=== PATIENT | female | born 1995 | race Caucasian/White ===

== ENCOUNTER 2016-07-07 19:00 | Inpatient (IN) | payer MEDICAID ==
[~2016-07-07] VITALS: Ht 160 cm; Wt 59.5 kg
[~2016-07-07 19:00] MED LIST: DCS100C PO; FRS325T PO; IBP600T1 PO; IBUP-1773 PO; NAPR-243 PO; OXYC-12 PO; OXYC1TAB87 PO; PREN1TAB39 PO; TRAM-21 PO
[2016-07-07 19:13] VITALS: BP 113/78
[2016-07-07] MEDS ORDERED: ZOLPIDEM 5 MG (AMBIEN) TAB PO PRN (19:45)
[2016-07-07] MEDS ORDERED: MINERAL OIL CONCENTRATE 99.9% 15 ML UDC TOP PRN (19:45)
[2016-07-07] MEDS ORDERED: DINOPROSTONE 10 MG (CERVIDIL) INSERT PV ONE (19:45)
[2016-07-07] MEDS: D5 LR IV SOLUTION 1,000 ML IV SCH (20:15)
[2016-07-07 20:33] LABS: BASOPHILS % (AUTO) 0 % (0-10); BILIRUBIN,URINE NEGATIVE (NEGATIVE); EOSINOPHILS # (AUTO) 0.1 10^3/uL (0.0-0.3); EOSINOPHILS % (AUTO) 1 % (0-10); KETONES,URINE 1+ (NEGATIVE); LEUKOCYTE ESTERASE ,URINE 2+ (NEGATIVE); LYMPHOCYTES # (AUTO) 1.3 X 10^3 (1.0-4.0); LYMPHOCYTES % (AUTO) 22 % (12-44); MEAN CORPUSCULAR HEMOGLOBIN 26 PG (25-34); MEAN CORPUSCULAR HGB CONC 32 G/DL (32-36); MEAN CORPUSCULAR VOLUME 82 FL (80-99); MEAN PLATELET VOLUME 12.8 FL (7.4-10.4); MONOCYTES # (AUTO) 0.8 X 10^3 (0.0-1.0); MONOCYTES % (AUTO) 13 % (0-12); NEUTROPHILS # (AUTO) 3.7 X 10^3 (1.8-7.8); NEUTROPHILS % (AUTO) 63 % (42-75); NITRITE,URINE NEGATIVE (NEGATIVE); PH,URINE 6.5 (5-9); PLATELET COUNT 110 10^3/uL (130-400); PROTEIN,URINE NEGATIVE (NEGATIVE); RED BLOOD COUNT 3.27 10^6/uL (4.35-5.85); RED CELL DISTRIBUTION WIDTH 13.9 % (10.0-14.5); UROBILINOGEN,URINE 1 MG/DL (NORMAL); WHITE BLOOD COUNT 5.8 10^3/uL (4.3-11.0)
[2016-07-07] MEDS ORDERED: FERR-65 PO (21:08)
[2016-07-07] MEDS ORDERED: PREN-37 PO (21:09)
[2016-07-07] MEDS ORDERED: CATHETER FLUSH 10 ML SYR IV SCH (22:00)
[2016-07-07 23:25] VITALS: BP 119/80
[2016-07-08] VITALS (35 sets, daily range): BP systolic 100–166; BP diastolic 3–98
[2016-07-08] MEDS ORDERED: ACETAMINOPHEN 500 MG TAB (TYLENOL) PO ONE (03:15)
[2016-07-08] MEDS: D5 LR IV SOLUTION 1,000 ML IV SCH (03:15)
[2016-07-08] MEDS: BUTORPHANOL INJ 2 MG/ML (STADOL) VIAL IV PRN ×2 (04:17→08:37)
[2016-07-08] MEDS ORDERED: fentaNYL INJECTION 100 MCG/2 ML AMP ONE (07:29)
[2016-07-08] MEDS ORDERED: SUFENTA 1 MCG/ML BUPIVA 0.1% 100 ML ONE (07:29)
[2016-07-08] MEDS ORDERED: BUPIVACAINE 0.25% 30 ML (SENSORCAINE) VIAL ONE (07:29)
[2016-07-08] MEDS ORDERED: LACTATED RINGERS 1,000 ML IV ONE (07:29)
[2016-07-08] MEDS ORDERED: OXYTOCIN/NORMAL SALINE 500 ML IV SCH ×2 (07:36→11:17)
--- NOTE | 2016-07-08 07:36 | History & Physical-OB ---
OB - Chief Complaint & HPI Date Date of Admission: Date of Admission: Jul 07, 2016 at 19:15 Chief Complaint/History OB-Reason for Admission/Chief: Induction of Labor Hx : 3 Hx Para: 2 Expected Date of Delivery: Jul 14, 2016 Gestational Age in Weeks: 39 Gestational Age in Days: 0 History of Labs GBS negative Allergies and Home Medications Allergies Coded Allergies: codeine (Unverified Allergy, Unknown, 03/19/10) Home Medications Ferrous Sulfate 325 Mg Tablet 325 MG PO TIDWM (Reported) Vit/Iron Fumarate/FA 1 Each Tablet 1 EACH PO DAILY (Reported) OB - History Hx of Present Care: Yes Ultrasounds: Normal mid trimester US Obstetrical Complications: None Medical Complications: None Obstetrical History Hx Termination: No Hx Multiple Gestation: No Hx Stillbirth: No Hx Complication: No Hx Induced Hypertens: No Hx Maternal Gestational Diabet: No Delivery History Hx Dystocia: No Hx Large For Gestational Age I: No Hx Small for Gestational Age I: No Hx Section: No Hx Blood Disorders: No Adverse Rxn to Tranfusion: No Patient Past Medical History no chronic medical problems Social History/Family History HIV/AIDS: No Sexually Transmitted Disease: Yes (CHLAMYDIA- 2016- TREATED) Alcohol Use: Denies Use Recreational Drug Use: No Immunizations Hepatitis A: No Hepatitis B: No Tetanus Booster (TDap): Unknown Date of Influenza Vaccine: May 11, 2016 OB - Admission Exam Physical Exam Vitals: Vital Signs 07/08/16 03:10 Temp 97.7 Pulse 72 Resp 18 B/P 100/55 O2 Delivery Room Air HEENT: Moist Membranes Heart: Rhythm Normal Lungs: Clear Abdomen: Gravid Extremities: Normal Cervical Dilatation: 2cm Effacement: 50% Station: -3 Membranes: Intact Heart Rate: 130's Accelerations: Accelerations Present Decelerations: No Decelerations Short Term Variability: Present Care Home Variability: Average (6-25) Contractions on Admission: >10 Minutes Apart Jennings Scoring Tool (Modified) Dilation (cm): 1-2cm (1) Effacement (%): 51-79% (2) Descent/Station: -3 (0) Cervix Consistency: Medium(1) Cervix Position: Posterior (0) Jennings Score: 4 Labs Laboratory Tests Test 07/07/16 20:15 Range/Units Basophils # (Auto) 0.0 0.0-0.1 10^3/uL Basophils (%) (Auto) 0 0-10 % Eosinophils # (Auto) 0.1 0.0-0.3 10^3/uL Eosinophils (%) (Auto) 1 0-10 % Hematocrit 27 L 35-52 % Hemoglobin 8.5 L 11.5-16.0 G/DL Lymphocytes # (Auto) 1.3 1.0-4.0 X 10^3 Lymphocytes (%) (Auto) 22 12-44 % Mean Corpuscular Hemoglobin 26 25-34 PG Mean Corpuscular Hemoglobin Concent 32 32-36 G/DL Mean Corpuscular Volume 82 80-99 FL Mean Platelet Volume 12.8 H 7.4-10.4 FL Monocytes # (Auto) 0.8 0.0-1.0 X 10^3 Monocytes (%) (Auto) 13 H 0-12 % Neutrophils # (Auto) 3.7 1.8-7.8 X 10^3 Neutrophils (%) (Auto) 63 42-75 % Platelet Count 110 L 130-400 10^3/uL Red Blood Count 3.27 L 4.35-5.85 10^6/uL Red Cell Distribution Width 13.9 10.0-14.5 % Urine Bacteria MODERATE H /HPF Urine Bilirubin NEGATIVE NEGATIVE Urine Casts NONE /LPF Urine Clarity SLIGHTLY CLOUDY Urine Color YELLOW Urine Crystals NONE /LPF Urine Culture Indicated YES Urine Glucose (UA) NEGATIVE NEGATIVE Urine Ketones 1+ H NEGATIVE Urine Leukocyte Esterase 2+ H NEGATIVE Urine Mucus LARGE H /LPF Urine Nitrite NEGATIVE NEGATIVE Urine Protein NEGATIVE NEGATIVE Urine RBC RARE /HPF Urine RBC (Auto) 4+ H NEGATIVE Urine Specific [place] 1.020 1.016-1.022 Urine Squamous Epithelial Cells 10-25 H /HPF Urine Urobilinogen 1 NORMAL MG/DL Urine WBC 5-10 H /HPF Urine pH 6.5 5-9 White Blood Count 5.8 4.3-11.0 10^3/uL OB - Assessment/Plan/Diagnosis Assessment Assessment: induction of labor Plan Plan: Induction (by cervidil pm of 07/07 and AROM in am of 07/08) Other Plan planning on epidural GERSON MUELLER MD Jul 08, 2016 07:36
[2016-07-08] MEDS ORDERED: LIDOCAINE PF 2% 10 ML (XYLOCAINE) AMP ONE (08:52)
[2016-07-08] MEDS ORDERED: LACTATED RINGERS 1,000 ML IV SCH (09:18)
[2016-07-08] MEDS ORDERED: ONDANSETRON 4 MG/2 ML (SDV) Z0FRAN IV PRN (09:30)
[2016-07-08] MEDS ORDERED: diphenhydrAMINE 50 MG/ML INJ (BENADRYL) IV PRN (09:30)
[2016-07-08] MEDS ORDERED: EPIDURAL (SUFENTANIL 1 MCG/ML BUPIVACAINE 0.1%) 100 ML EPI PRN (09:30)
[2016-07-08] MEDS ORDERED: NALOXONE 0.4 MG/ML 1 ML (NARCAN) VIAL IV PRN (09:30)
--- NOTE | 2016-07-08 11:23 | OB Labor & Delivery Record ---
L&D History Date of Service Date of Service: Jul 08, 2016 History Expected Date of Delivery: Jul 14, 2016 Gestational Age in Weeks: 39 Hx : 3 Hx Para: 2 Complications Events: Routine care Operative Indications (Cesarea: N/A-Vaginal Delivery Intrapartal Events: None L&D Stage1 Stage One Onset of Labor - Date: Jul 08, 2016 Onset of Labor - Time: 07:20 Monitors and Tracing Monitor Mode: Internal Heart Rate: 125 Monitor Accelerations: Uniform Monitor Decelerations: None Station: 0 Conference Translator Variability: Average (6-10) Short Term Variability: Present Presentation: Vertex Vital Signs VS - Last 72 Hours, by Label 07/07/16 07/07/16 07/08/16 07/08/16 19:13 23:25 03:10 07:30 Temp 98.3 97.7 98.1 Pulse 107 71 72 83 Resp 18 18 18 18 B/P 113/78 119/80 100/55 121/79 O2 Delivery Room Air Room Air Room Air Room Air 07/08/16 07/08/16 07/08/16 07/08/16 07:45 08:00 08:15 09:00 Pulse 83 74 103 84 Resp 20 20 20 18 B/P 110/78 118/77 136/98 116/59 O2 Delivery Room Air Room Air Room Air Room Air 07/08/16 07/08/16 07/08/16 07/08/16 09:05 09:10 09:15 09:20 Pulse 71 72 95 75 Resp 18 18 18 18 B/P 117/68 124/76 125/76 108/67 Pulse Ox 100 92 95 97 O2 Delivery Room Air Room Air Room Air Room Air 07/08/16 07/08/16 07/08/16 07/08/16 09:25 09:30 09:35 09:40 Pulse 79 96 85 104 Resp 18 16 16 18 B/P 108/64 103/59 108/61 106/67 Pulse Ox 93 98 98 100 O2 Delivery Room Air Room Air Room Air Room Air 07/08/16 07/08/16 07/08/16 07/08/16 09:45 09:50 09:55 10:00 Pulse 85 91 86 87 Resp 18 18 16 16 B/P 109/69 111/69 102/64 106/71 Pulse Ox 98 97 97 98 O2 Delivery Room Air Room Air Room Air Room Air 07/08/16 07/08/16 07/08/16 07/08/16 10:05 10:10 10:15 10:30 Pulse 83 81 82 105 Resp 16 B/P 103/64 114/65 107/62 119/66 Pulse Ox 99 99 96 98 O2 Delivery Room Air Room Air Room Air Room Air Rupture of Membranes Spontaneous Ruture of Membrane: No Amniotic Membrane Rupture Time: 724 Amniotic Membrane Fluid Desc.: Clear Induction/Anesthesia Epidural Cath Placement - Time: 0911 L&D Stage2 Stage Two Stage II Date: Jul 08, 2016 Stage II Time: 10:57 Monitors and Tracing Monitor Mode: Internal Heart Rate: 125 Monitor Accelerations: Uniform Monitor Decelerations: Variable Intermediate Variability: Average (6-10) Short Term Variability: Present Position: Left Occiput Anterior Presentation: Vertex Signs of Distress by FHT Signs of Distress no Cord Descript/Complications Cord Vessel Description: 3 Vessels Delivery Type Delivery Method: Spontaneous Vaginal Anterior Shoulder: Left Episiotomy/Perineal Laceration Laceraction(s)/Extensions: No Condition of Infant Delivery 1 minute Comment: 9 5 minute Comment: 9 Condition of Condition of Infant: Living Exam: No Observed Abnormalities Resuscitation Resuscitation: N/A - Spontaneous Resp L&D Stage3 Stage Three Stage III Date: Jul 08, 2016 Stage III Time: 11:01 Pictocin Pitocin ml/hr: 125 Placenta Delivery Placenta Delivery: Spontaneous Delivery Summary Summary Vaginal blood loss >500ml: No 100cc Condition of Delivery Examined: Cervix Examined Post Hemorrhage: No GERSON MUELLER MD Jul 08, 2016 11:23
[2016-07-08] MEDS ORDERED: TETANUS,DIPTH,PERTUSS P/F (BOOSTRIX) 0.5 ML VIAL IM ONE (11:30)
[2016-07-08] MEDS ORDERED: WITCH HAZEL(TUCKS) 40 EA JAR TOP PRN (11:30)
[2016-07-08] MEDS ORDERED: MEASLES,MUMPS,RUBELLA 1 EA INJ SQ ONE (11:30)
[2016-07-08] MEDS ORDERED: BENZOCAINE/MENTHOL (DERMOPLAST) 56 ML CAN TP PRN (11:30)
[2016-07-08] MEDS: IBUPROFEN 600 MG (MOTRIN) TAB PO SCH ×3 (11:58→23:29)
[2016-07-08] MEDS ORDERED: CATHETER FLUSH 10 ML SYR IV SCH (14:00)
[2016-07-09 01:50] VITALS: BP 94/52
[2016-07-09] MEDS: HYDROcodone/APAP 5 MG/325 MG (LORTAB) TAB PO PRN ×2 (03:28→13:36)
[2016-07-09 05:57] VITALS: BP 96/52
[2016-07-09] MEDS: IBUPROFEN 600 MG (MOTRIN) TAB PO SCH ×2 (05:57→12:22)
[2016-07-09 06:29] LABS: BASOPHILS % (AUTO) 0 % (0-10); EOSINOPHILS # (AUTO) 0.1 10^3/uL (0.0-0.3); EOSINOPHILS % (AUTO) 2 % (0-10); LYMPHOCYTES # (AUTO) 1.8 X 10^3 (1.0-4.0); LYMPHOCYTES % (AUTO) 25 % (12-44); MEAN CORPUSCULAR HEMOGLOBIN 26 PG (25-34); MEAN CORPUSCULAR HGB CONC 32 G/DL (32-36); MEAN CORPUSCULAR VOLUME 83 FL (80-99); MEAN PLATELET VOLUME 12.5 FL (7.4-10.4); MONOCYTES % (AUTO) 14 % (0-12); NEUTROPHILS # (AUTO) 4.4 X 10^3 (1.8-7.8); NEUTROPHILS % (AUTO) 60 % (42-75); PLATELET COUNT 103 10^3/uL (130-400); RED BLOOD COUNT 2.92 10^6/uL (4.35-5.85); RED CELL DISTRIBUTION WIDTH 13.7 % (10.0-14.5); WHITE BLOOD COUNT 7.4 10^3/uL (4.3-11.0)
[2016-07-09] MEDS ORDERED: FERROUS SULF 325 MG (IRON) TAB PO SCH (07:00)
[2016-07-09] MEDS ORDERED: PRENATAL VITAMIN 1 EA TAB PO SCH (07:00)
--- NOTE | 2016-07-09 07:31 | Discharge Summary ---
Diagnosis/Chief Complaint Date of Admission Jul 07, 2016 at 19:15 Date of Discharge Discharge Date: Jul 09, 2016 Admission Diagnosis Admission Diagnosis 1. IUP at 39 weeks. 2. Iron def anemia Discharge Diagnosis 1. IUP at 39 weeks. 2. Iron def anemia Reason Hospital Visit 21-year-old 3 now term 3 female who initially presented to labor and delivery during the evening of July 07, 2016 for induction of labor. Patient was noted to be with iron deficiency anemia and she was on iron replacement. Patient's EDC was noted to be July 15, 2016. Her care was essentially unremarkable except for the anemia. Discharge Summary-OBS Procedures 1. Epidural per anesthesia 2. Spontaneous vaginal delivery Discharge Physical Examination Allergies: Coded Allergies: codeine (Unverified Allergy, Unknown, 03/19/10) Vitals & I&Os Vital Signs Date Time Temp Pulse Resp B/P Pulse Ox O2 Delivery O2 Flow Rate FiO2 07/09/16 05:57 98.2 74 18 96/52 97 Room Air General Appearance: No Acute Distress Respiratory: Clear to Auscultation Cardiovascular: Regular Rate Abdominal: Soft (with uterus firm) Hospital Course Patient was admitted during the evening of July 07, 2016 and underwent Cervidil ripening. Patient tolerated procedure well and developed a contraction pattern. She ultimately underwent amniotomy in the morning of July 08, 2016 with placement of scalp electrode. She developed a contraction pattern and eventually went on to deliver a term viable male delivery was accomplished spontaneous vaginal over intact perineum. Following delivery patient underwent routine care orders. She had no complications during the remainder of her hospital stay. She was noted to be ambulatory and did not have any chest pain, shortness of breath or leg pain. She tolerated regular diet. Her hemoglobin on July 09 was 7.6. She was asymptomatic with regards to dizziness or lightheadedness when walking. All questions were answered she was allowed to be dismissed to home on the . She was instructed to continue with vitamins as well as iron. Pending Labs Laboratory Tests 07/09/16 06:10: Basophils # (Auto) 0.0, Basophils (%) (Auto) 0, Eosinophils # (Auto) 0.1, Eosinophils (%) (Auto) 2, Hematocrit 24, Hemoglobin 7.6, Lymphocytes # (Auto) 1.8, Lymphocytes (%) (Auto) 25, Mean Corpuscular Hemoglobin 26, Mean Corpuscular Hemoglobin Concent 32, Mean Corpuscular Volume 83, Mean Platelet Volume 12.5, Monocytes # (Auto) 1.0, Monocytes (%) (Auto) 14, Neutrophils # ( Auto) 4.4, Neutrophils (%) (Auto) 60, Platelet Count 103, Red Blood Count 2.92, Red Cell Distribution Width 13.7, White Blood Count 7.4 Discharge Instructions to patient/family Please see electonic discharge instructions given to patient. Discharge Medications Reviewed and agree with Discharge Medication list on patient's Discharge Instruction sheet Clinical Quality Measures DVT/VTE Risk/Contraindication: Risk Factor Score Per Nursin RFS Level Per Nursing on Admit: 1=Low/No VTE PPX GERSON MUELLER MD Jul 09, 2016 07:31
--- NOTE | 2016-07-09 07:53 | Discharge Inst-Women's Service ---
Discharge Inst-Women's Serv Depart Medication/Instructions New, Converted or Re-Newed RX: Other (continue home pnv and iron) Consults/Follow Up Additional Follow Up: Yes (with Dr Mueller in 6 weeks) Activity Activity: Activity as Tolerated Driving Instructions: You May Drive Nothing Inside Vagina: No Murphy (for 6 weeks.) Diet Discharge Diet: No Restrictions Return to The Hospital For: as below Symptoms to Report to : Bleeding Excessive, Pain Increased, Fever Over 101 Degrees F, Vaginal Discharge Foul For Any Problems or Questions: Contact Your Physician GERSON MUELLER MD Jul 09, 2016 07:53
[2016-07-09 09:11] VITALS: BP 108/72
--- NOTE | 2016-07-09 14:23 | Anesthesia-Regional Post-Op ---
Regional Patient Condition Mental Status: Alert, Oriented x3 Circulation: Same as Pre-Op Headache: Absent Sensation: Full Recovery Motor Block: Absent Post Op Complications Complications None Follow Up Care/Instructions Patient Instructions None needed. Anesthesia/Patient Condition Patient is doing well, no complaints, stable vital signs, no apparent adverse anesthesia problems. No complications reported per nursing. MACARENA GODINEZ CRNA Jul 09, 2016 14:23
[2016-07-09] MEDS ORDERED: TETANUS,DIPTH,PERTUSS P/F (BOOSTRIX) 0.5 ML VIAL IM ONE ×2 (15:06→15:16)
[2016-07-09 15:18] VITALS: BP 99/64
== END 2016-07-09 17:00 | disposition home or self-care (01) | DRG 775 ==
LOC: LDRP 19:15
PROVIDERS: ADMIT Family Medicine; ATTEND Family Medicine
PROC: 3E0P7GC Introduction of Other Therapeutic Substance into Female Reproductive, Via Natural or Artificial Opening (ICD-10-PCS; 2016-07-07)
PROC: 10E0XZZ Delivery of Products of Conception, External Approach (ICD-10-PCS; principal; 2016-07-08)
DX: O99.013 Anemia complicating pregnancy, third trimester (principal); D50.9 Iron deficiency anemia, unspecified; Z37.0 Single live birth; Z3A.39 39 weeks gestation of pregnancy; Z23 Encounter for immunization
CPT/HCPCS: 36415; 81000; 85025; 86850; 86900; 86901; 87088; 90715

== ENCOUNTER → 2017-09-13 | Outpatient (CLI) | payer MEDICAID ==
[~2017-09-13] MED LIST changes: +FERR-65 PO; +PREN-37 PO
--- NOTE | 2017-09-13 17:11 | Diagnostic Imaging Report ---
INDICATION: dating and anatomy survey. TECHNIQUE: Multiple real-time grayscale images were obtained over the gravid uterus. COMPARISON: None FINDINGS: There is a single live intrauterine in a cephalic presentation. The placenta is posterior and fundal in position and there is no evidence of previa or abruption. The cervix remains closed and measures approximately 4 cm in length. The amount of amniotic fluid appears visually appropriate. heart rate is 147 beats per minute. anatomy survey was performed and the following structures are visualized and normal: Kidneys, umbilical cord insertion, three-vessel cord. The spine, head and extremities were suboptimally evaluated due to positioning. There is an echogenic focus within the left lateral ventricle of the heart, which is nonspecific. Due to advanced gestational age, maternal adnexa are poorly seen. Biometrical measurements are as follows: Biparietal 4.54 cm, age 19 weeks 6 days. Head circumference 17.06 cm, age 19 weeks 5 days. Abdominal circumference 14.41 cm, age 19 weeks 6 days. Femur length 3.05 cm, age 19 weeks 4 days. Sonographic estimate age: 19 weeks 6 days. Sonographic estimated date of delivery: 02-01-18. Estimated Weight: 303 gm (+/- 44 gm). LMP percentile: 39%. heart rate: 147 beats per minute. number: 1 of 1. IMPRESSION: 1. Single live intrauterine with averaged ultrasound age of 19 weeks and 6 days. Additional biometric data is supplied above. 2. anatomy survey is limited due to fetus positioning. Advise followup repeat anatomy survey in 1-2 weeks. 3. Nonspecific echogenic intraventricular bright spot within the heart. This has been reported to have an increased incidence of trisomy disorders, but can also be seen in normal pregnancies. Dictated by: Dictated on workstation # [id number]
== END ==
LOC: RAD 14:26
PROVIDERS: ATTEND Family Medicine
DX: Z36.89 Encounter for other specified antenatal screening (principal); Z3A.19 19 weeks gestation of pregnancy
CPT/HCPCS: 76805

== ENCOUNTER → 2017-10-07 | Outpatient (CLI) | payer MEDICAID ==
--- NOTE | 2017-10-07 11:53 | Diagnostic Imaging Report ---
INDICATION: Followup heart, head and spine. TECHNIQUE: Multiple real-time grayscale images were obtained over the gravid uterus. COMPARISON: Correlation is made with the prior ultrasound dated 09/13/2017. FINDINGS: There is a single live fetus in a cephalic presentation. Placenta is posterior. Amniotic fluid volume is normal. heart rate was recorded at 138 beats per minute. spine is unremarkable. Intracranial structures are unremarkable. Previously noted intracardiac echogenic focus in the left ventricle is again noted. IMPRESSION: Followup ultrasound demonstrating normal intracranial anatomy and normal appearance of the spine. The previously noted intracardiac echogenic focus of the left ventricle persists with the considerations on prior report. Dictated by: Dictated on workstation # [id number]
== END ==
LOC: RAD 09:28
PROVIDERS: ATTEND Family Medicine
DX: Z36.89 Encounter for other specified antenatal screening (principal); Z3A.18 18 weeks gestation of pregnancy
CPT/HCPCS: 76816

== ENCOUNTER 2017-10-12 23:27 | Outpatient (CLI) | payer MEDICAID ==
[~2017-10-12] VITALS: Ht 160 cm; Wt 55.1 kg
[2017-10-12 23:44] VITALS: BP 108/60
--- NOTE | 2017-10-13 14:24 | Physician Query-Final Dx ---
SVETLANA MCGOWAN 10/13/17 1424: Clinic Account Progress/Dx Physician Query: Please give diagnosis Date of Service Oct 12, 2017 at 23:27 GERSON MUELLER MD 10/18/17 0733: Clinic Account Progress/Dx DIAGNOSIS: Diagnosis 1. Vaginal spotting, resolved 2. IUP at 24 weeks SVETLANA MCGOWAN Oct 13, 2017 14:24 GERSON MUELLER MD Oct 18, 2017 07:33
== END 2017-10-13 00:15 | disposition home or self-care (01) ==
LOC: LDRP 23:27 → WSo 23:27
PROVIDERS: ATTEND Family Medicine
DX: O26.852 Spotting complicating pregnancy, second trimester (principal); Z3A.24 24 weeks gestation of pregnancy
CPT/HCPCS: 99212

== ENCOUNTER → 2018-01-06 | Outpatient (CLI) | payer MEDICAID ==
[~2018-01-06] MED LIST changes: +IBUP-844 PO
--- NOTE | 2018-01-06 15:21 | Diagnostic Imaging Report ---
INDICATION: OB followup of echogenic focus seen in the left ventricle of the heart. TECHNIQUE: Multiple real-time grayscale images were obtained over the gravid uterus. COMPARISON: 09/13/2017 and 10/07/2017. FINDINGS: Single live intrauterine in cephalic presentation. The VENESSA is normal at 10 cm. heart rate of 147 beats per minute. Due to advanced gestational age, maternal adnexa are not well seen. Limited assessment of the heart demonstrates the intra-ventricular echogenic focus to have resolved. IMPRESSION: 1. Resolution of the echogenic intraventricular focus within the heart. 2. Normal amniotic fluid volume. Dictated by: Dictated on workstation # [id number]
== END ==
LOC: RAD 14:28
PROVIDERS: ATTEND Family Medicine
DX: Z34.93 Encounter for supervision of normal pregnancy, unspecified, third trimester (principal); Z3A.36 36 weeks gestation of pregnancy
CPT/HCPCS: 76816

== ENCOUNTER 2018-01-26 18:59 | Inpatient (IN) | payer MEDICAID ==
[~2018-01-26 18:59] MED LIST changes: -IBUP-844 PO
[2018-01-26 19:20] VITALS: BP 117/69
[2018-01-26] MEDS ORDERED: MINERAL OIL CONCENTRATE 99.9% 15 ML UDC TOP PRN (19:45)
[2018-01-26] MEDS ORDERED: DINOPROSTONE 10 MG (CERVIDIL) INSERT PV NR (19:45)
[2018-01-26] MEDS ORDERED: BUTORPHANOL INJ 2 MG/ML (STADOL) VIAL IV PRN (19:45)
[2018-01-26] MEDS ORDERED: D5 LR IV SOLUTION 1,000 ML IV ONE (19:48)
[2018-01-26] MEDS: D5 LR IV SOLUTION 1,000 ML IV SCH (20:05)
[2018-01-26 20:17] LABS: BASOPHILS % (AUTO) 0 % (0-10); EOSINOPHILS # (AUTO) 0.1 10^3/uL (0.0-0.3); EOSINOPHILS % (AUTO) 1 % (0-10); HEMATOCRIT 25 % (35-52); HEMOGLOBIN 8.2 G/DL (11.5-16.0); LYMPHOCYTES # (AUTO) 1.6 X 10^3 (1.0-4.0); LYMPHOCYTES % (AUTO) 26 % (12-44); MEAN CORPUSCULAR HEMOGLOBIN 26 PG (25-34); MEAN CORPUSCULAR HGB CONC 33 G/DL (32-36); MEAN CORPUSCULAR VOLUME 79 FL (80-99); MEAN PLATELET VOLUME 12.1 FL (7.4-10.4); MONOCYTES # (AUTO) 0.9 X 10^3 (0.0-1.0); MONOCYTES % (AUTO) 14 % (0-12); NEUTROPHILS # (AUTO) 3.7 X 10^3 (1.8-7.8); NEUTROPHILS % (AUTO) 58 % (42-75); PLATELET COUNT 122 10^3/uL (130-400); RED BLOOD COUNT 3.19 10^6/uL (4.35-5.85); RED CELL DISTRIBUTION WIDTH 14.7 % (10.0-14.5); WHITE BLOOD COUNT 6.2 10^3/uL (4.3-11.0)
[2018-01-26 21:00] VITALS: BP 106/65
[2018-01-26] MEDS ORDERED: ZOLPIDEM 5 MG (AMBIEN) TAB PO NR (21:00)
[2018-01-26] MEDS ORDERED: CATHETER FLUSH 10 ML SYR IV SCH (22:00)
[2018-01-26 23:43] VITALS: BP 97/60
[2018-01-27] VITALS (40 sets, daily range): BP systolic 88–142; BP diastolic 51–94
[2018-01-27] MEDS: D5 LR IV SOLUTION 1,000 ML IV SCH ×2 (00:11→08:02)
[2018-01-27] MEDS ORDERED: KETOROLAC 30 MG/ML VIAL ONE (01:25)
[2018-01-27] MEDS ORDERED: SUFENTA 0.6MCG/ML BUPIVA 0.125 100 ML ONE (07:21)
[2018-01-27] MEDS ORDERED: OXYTOCIN/NORMAL SALINE 500 ML IV SCH ×2 (07:34→12:08)
--- NOTE | 2018-01-27 07:34 | History & Physical-OB ---
OB - Chief Complaint & HPI Date/Time Date of Admission: Date of Admission: Jan 26, 2018 at 18:59 Time Seen by Provider: 07:10 Chief Complaint/History OB-Reason for Admission/Chief: Induction of Labor Hx : 4 Hx Para: 3 Expected Date of Delivery: Feb 01, 2018 Gestational Age in Weeks: 39 Gestational Age in Days: 2 Admission Nurse Assessment Rev: Yes History of Labs GBS negative Allergies and Home Medications Allergies Coded Allergies: codeine (Unverified Allergy, Unknown, 03/19/10) Home Medications Ferrous Sulfate 325 Mg Tablet, 325 MG PO TIDWM, (Reported) Vit/Iron Fumarate/FA 1 Each Tablet, 1 EACH PO DAILY, (Reported) Patient Home Medication List Home Medication List Reviewed: Yes OB - History Hx of Present Care: Yes Ultrasounds: Normal mid trimester US Obstetrical Complications: None Medical Complications: None Obstetrical History Hx Termination: No Hx Multiple Gestation: No Hx Stillbirth: No Hx Complication: No Hx Induced Hypertens: No Hx Maternal Gestational Diabet: No Delivery History Hx Dystocia: No Hx Large For Gestational Age I: No Hx Small for Gestational Age I: No Hx Section: No Hx Blood Disorders: No Adverse Rxn to Tranfusion: No Patient Past Medical History no chronic medical problems Social History/Family History HIV/AIDS: No Recent Infectious Disease Expo: No Sexually Transmitted Disease: Yes (CHLAMYDIA- 2016- TREATED) Alcohol Use: Denies Use Recreational Drug Use: No Immunizations Hepatitis A: Yes Hepatitis B: Yes Tetanus Booster (TDap): Unknown Date of Influenza Vaccine: May 11, 2016 OB - Admission Exam Physical Exam Vitals: Vital Signs 01/26/18 01/26/18 01/27/18 21:00 23:43 03:18 Temp 97.8 Pulse 70 Resp 18 B/P (MAP) 96/55 (69) Pulse Ox 95 O2 Delivery Room Air O2 Flow Rate 15.00 HEENT: Moist Membranes Heart: Rhythm Normal Lungs: Clear Abdomen: Gravid Cervical Dilatation: 1cm Effacement: 50% Membranes: Intact Heart Rate: 140's Accelerations: Accelerations Present Short Term Variability: Present Swedish Masseuse Variability: Average (6-25) Contractions on Admission: >10 Minutes Apart Intensity: Mild Jennings Scoring Tool (Modified) Dilation (cm): 1-2cm (1) Effacement (%): 31-51% (1) Descent/Station: -3 (0) Cervix Consistency: Medium(1) Cervix Position: Middle/Mid-Position (1) Jennings Score: 7 Labs Laboratory Tests Test 01/26/18 20:00 Range/Units White Blood Count 6.2 4.3-11.0 10^3/uL Red Blood Count 3.19 L 4.35-5.85 10^6/uL Hemoglobin 8.2 L 11.5-16.0 G/DL Hematocrit 25 L 35-52 % Mean Corpuscular Volume 79 L 80-99 FL Mean Corpuscular Hemoglobin 26 25-34 PG Mean Corpuscular Hemoglobin Concent 33 32-36 G/DL Red Cell Distribution Width 14.7 H 10.0-14.5 % Platelet Count 122 L 130-400 10^3/uL Mean Platelet Volume 12.1 H 7.4-10.4 FL Neutrophils (%) (Auto) 58 42-75 % Lymphocytes (%) (Auto) 26 12-44 % Monocytes (%) (Auto) 14 H 0-12 % Eosinophils (%) (Auto) 1 0-10 % Basophils (%) (Auto) 0 0-10 % Neutrophils # (Auto) 3.7 1.8-7.8 X 10^3 Lymphocytes # (Auto) 1.6 1.0-4.0 X 10^3 Monocytes # (Auto) 0.9 0.0-1.0 X 10^3 Eosinophils # (Auto) 0.1 0.0-0.3 10^3/uL Basophils # (Auto) 0.0 0.0-0.1 10^3/uL OB - Assessment/Plan/Diagnosis Assessment Assessment: induction of labor Admission Dx IUP at term 39w2d Admission Status: Inpatient Order (span 2 midnights) Reason for Inpatient Admission: L&D Plan Plan: Induction Induction Method: other (cervidil) Other Plan desires epidural in labor GERSON MUELLER MD Jan 27, 2018 07:34
[2018-01-27] MEDS ORDERED: BUPIVACAINE 0.25% 30 ML (SENSORCAINE) VIAL ONE (08:22)
[2018-01-27] MEDS ORDERED: fentaNYL INJECTION 100 MCG/2 ML AMP ONE (08:22)
[2018-01-27] MEDS ORDERED: LIDOCAINE PF 2% 5 ML (XYLOCAINE) VIAL ONE (08:22)
[2018-01-27] MEDS ORDERED: LACTATED RINGERS 1,000 ML IV SCH (10:06)
[2018-01-27] MEDS ORDERED: EPIDURAL (SUFENTA 0.6MCG/ML BUPIVA 0.125%) 100 ML BAG EPI PRN (10:15)
[2018-01-27] MEDS ORDERED: NALOXONE 0.4 MG/ML 1 ML (NARCAN) VIAL IV PRN (10:15)
[2018-01-27] MEDS ORDERED: ONDANSETRON 4 MG/2 ML (SDV) Z0FRAN IV PRN (10:15)
[2018-01-27] MEDS ORDERED: diphenhydrAMINE 50 MG/ML INJ (BENADRYL) IV PRN (10:15)
[2018-01-27] MEDS ORDERED: MEPIVACAINE (CARBOCAINE) 2% 20 ML VIAL ONE (11:35)
[2018-01-27] MEDS ORDERED: WITCH HAZEL(TUCKS) 40 EA JAR ONE (12:08)
[2018-01-27] MEDS ORDERED: BENZOCAINE/MENTHOL (DERMOPLAST) 56 ML CAN TP ONE (12:08)
--- NOTE | 2018-01-27 12:08 | OB Labor & Delivery Record ---
L&D History Date of Service Date of Service: Jan 27, 2018 History Expected Date of Delivery: Feb 01, 2018 Gestational Age in Weeks: 39 Hx : 4 Hx Para: 3 Complications Events: Routine care Operative Indications (Cesarea: N/A-Vaginal Delivery Intrapartal Events: None L&D Stage1 Stage One Onset of Labor - Date: Jan 27, 2018 Onset of Labor - Time: 07:00 Monitors and Tracing Monitor Mode: Internal Heart Rate: 135 Monitor Accelerations: Uniform Monitor Decelerations: Early Station: -3 Sales Floor Team Leader Variability: Average (6-10) Short Term Variability: Present Presentation: Vertex Vital Signs VS - Last 72 Hours, by Label 01/26/18 01/26/18 01/26/18 01/27/18 19:20 21:00 23:43 00:19 Temp 98.8 97.8 Pulse 93 85 68 78 Resp 18 18 16 16 B/P (MAP) 117/69 (85) 106/65 (79) 97/60 (72) 95/51 (66) Pulse Ox 100 97 O2 Delivery Non Rebreather Room Air O2 Flow Rate 15.00 01/27/18 01/27/18 01/27/18 01/27/18 00:47 01:17 02:20 03:18 Pulse 71 74 64 70 Resp 16 16 18 18 B/P (MAP) 89/51 (64) 88/54 (65) 92/55 (67) 96/55 (69) Pulse Ox 96 96 95 95 O2 Delivery Room Air Room Air Room Air Room Air Signs of Distress by FHT Signs of Distress no Rupture of Membranes Spontaneous Ruture of Membrane: No Amniotic Membrane Rupture Time: 07:00 Amniotic Membrane Fluid Desc.: Clear L&D Stage2 Stage Two Stage II Date: Jan 27, 2018 Stage II Time: 11:50 Monitors and Tracing Monitor Mode: Internal Heart Rate: 135 Monitor Accelerations: Uniform Monitor Decelerations: Early Usp Variability: Average (6-10) Short Term Variability: Present Position: Left Occiput Anterior Signs of Distress by FHT Signs of Distress no Cord Descript/Complications Cord Vessel Description: 3 Vessels Delivery Type Delivery Method: Spontaneous Vaginal Anterior Shoulder: Left Episiotomy/Perineal Laceration Laceraction(s)/Extensions: No Condition of Infant Delivery 1 minute Comment: 9 5 minute Comment: 9 Condition of Infant Condition of Infant: Living Exam: No Observed Abnormalities Resuscitation Resuscitation: N/A - Spontaneous Resp L&D Stage3 Stage Three Stage III Date: Jan 27, 2018 Stage III Time: 11:55 Pictocin Pitocin ml/hr: 125 Placenta Delivery Placenta Delivery: Spontaneous Delivery Summary Summary Estimated blood loss (mL): 200 Condition of Delivery Examined: Cervix Examined Post Hemorrhage: No Intervention Required none GERSON MUELLER MD Jan 27, 2018 12:08
[2018-01-27] MEDS ORDERED: MEASLES,MUMPS,RUBELLA 1 EA INJ SQ ONE (12:15)
[2018-01-27] MEDS ORDERED: oxyCODONE/APAP 5/325MG (PERCOCET 5) TABLET PO PRN (12:15)
[2018-01-27] MEDS ORDERED: BENZOCAINE/MENTHOL (DERMOPLAST) 56 ML CAN TP PRN (12:15)
[2018-01-27] MEDS ORDERED: WITCH HAZEL(TUCKS) 40 EA JAR TOP PRN (12:15)
[2018-01-27] MEDS ORDERED: TETANUS,DIPTH,PERTUSS P/F (BOOSTRIX) 0.5 ML VIAL IM ONE (12:15)
[2018-01-27] MEDS: IBUPROFEN 600 MG (MOTRIN) TAB PO SCH ×2 (12:56→19:13)
[2018-01-27] MEDS ORDERED: CATHETER FLUSH 10 ML SYR IV SCH (14:00)
[2018-01-27] MEDS ORDERED: FERROUS SULF 325 MG (IRON) TAB PO SCH (17:00)
[2018-01-28 01:30] VITALS: BP 104/65
[2018-01-28] MEDS: IBUPROFEN 600 MG (MOTRIN) TAB PO SCH ×3 (01:32→15:14)
--- NOTE | 2018-01-28 06:41 | Discharge Summary ---
Diagnosis/Chief Complaint Date of Admission Jan 26, 2018 at 18:59 Date of Discharge January 28, 2018 Discharge Date: Jan 28, 2018 Discharge Time: 15:00 Admission Diagnosis Admission Diagnosis 1. IUP at 39 weeks 2. Anemia, iron def Discharge Diagnosis 1. IUP at 39 weeks 2. Anemia, iron def Reason Hospital Visit 22 yo G4 now T4 who initially presented to [facility] for induction of labor following 39 weeks. Discharge Summary-OBS Procedures 1. Epidural per anesthesia 2. Spontaneous vaginal delivery Discharge Physical Examination Allergies: Coded Allergies: codeine (Unverified Allergy, Unknown, Pt has received hydrocodone in the past w/o issue, 01/27/18) Vitals & I&Os Vital Signs Date Time Temp Pulse Resp B/P (MAP) Pulse Ox O2 Delivery O2 Flow Rate FiO2 01/27/18 15:35 98.6 79 99/62 (74) 99 Room Air 01/27/18 13:40 16 01/26/18 23:43 15.00 General Appearance: No Acute Distress Respiratory: Clear to Auscultation Cardiovascular: Regular Rate Abdominal: Soft (with uterus firm) Hospital Course Following admission during the evening of September 26, 2017 she underwent Cervidil ripening. Patient was noted to tolerate Cervidil well and began contraction pattern. By the morning of January 27, 2018 she was in labor pattern when amniotomy was performed. Ultimately she continued to contract and required low- dose Pitocin augmentation. She did receive epidural per anesthesia. She ultimately went on to deliver a term viable male with Apgars of 9 at 1 minute and 9 at 5 minutes. She had no episiotomy. Estimated blood loss at 200 mL. Following delivery she underwent routine care orders. She had no complaints with ambulation. She did complain of a slight headache and back pain due to the epidural and anesthesiology addressed this problem. In the morning of January 28, 2018 her hemoglobin was noted to be 7.5 compared to 8.1 on admission. Patient is with known anemia and had been taking iron twice daily during her course. Patient was eager for dismissal during the afternoon of January 28, 2018. Pending her response to anti-inflammatories for her back discomfort she will be discharged this afternoon on January 28, 2018. All questions answered. Discharge Instructions to patient/family Please see electronic discharge instructions given to patient. Discharge Medications Reviewed and agree with Discharge Medication list on patient's Discharge Instruction sheet Clinical Quality Measures DVT/VTE Risk/Contraindication: Risk Factor Score Per Nursin RFS Level Per Nursing on Admit: 1=Low/No VTE PPX GERSON MUELLER MD Jan 28, 2018 06:41
[2018-01-28 06:44] LABS: BASOPHILS % (AUTO) 0 % (0-10); EOSINOPHILS # (AUTO) 0.1 10^3/uL (0.0-0.3); EOSINOPHILS % (AUTO) 1 % (0-10); HEMATOCRIT 23 % (35-52); HEMOGLOBIN 7.5 G/DL (11.5-16.0); LYMPHOCYTES # (AUTO) 1.8 X 10^3 (1.0-4.0); LYMPHOCYTES % (AUTO) 20 % (12-44); MEAN CORPUSCULAR HEMOGLOBIN 25 PG (25-34); MEAN CORPUSCULAR HGB CONC 32 G/DL (32-36); MEAN CORPUSCULAR VOLUME 79 FL (80-99); MEAN PLATELET VOLUME 12.1 FL (7.4-10.4); MONOCYTES # (AUTO) 1.2 X 10^3 (0.0-1.0); MONOCYTES % (AUTO) 14 % (0-12); NEUTROPHILS # (AUTO) 5.9 X 10^3 (1.8-7.8); NEUTROPHILS % (AUTO) 65 % (42-75); PLATELET COUNT 101 10^3/uL (130-400); RED BLOOD COUNT 2.95 10^6/uL (4.35-5.85); RED CELL DISTRIBUTION WIDTH 14.6 % (10.0-14.5)
[2018-01-28] MEDS ORDERED: PRENATAL VITAMIN 1 EA TAB PO SCH (07:00)
[2018-01-28] MEDS ORDERED: IBUP-844 PO (07:39)
--- NOTE | 2018-01-28 07:40 | Discharge Inst-Women's Service ---
Discharge Inst-Women's Serv Depart Medication/Instructions New, Converted or Re-Newed RX: RX on Chart Consults/Follow Up Additional Follow Up: Yes (with Dr Mueller in 6 weeks) Activity Activity: Activity as Tolerated Driving Instructions: No Driving for 1 Week Nothing Inside Vagina: No [place] (for 6 weeks.) Diet Discharge Diet: Regular Diet Return to The Hospital For: as below Symptoms to Report to : Bleeding Excessive, Fever Over 101 Degrees F, Vaginal Discharge Foul For Any Problems or Questions: Contact Your Physician GERSON MUELLER MD Jan 28, 2018 07:40
[2018-01-28 08:00] VITALS: BP 102/66
--- NOTE | 2018-01-28 09:14 | Anesthesia-Regional Post-Op ---
Regional Patient Condition Mental Status: Alert, Oriented x3 Circulation: Same as Pre-Op Headache: Absent Sensation: Full Recovery Motor Block: Absent Post Op Complications Complications None Follow Up Care/Instructions Patient Instructions None needed. Anesthesia/Patient Condition Patient is doing well, no complaints, stable vital signs, no apparent adverse anesthesia problems. No complications reported per nursing. ALYSSA MARQUEZ CRNA Jan 28, 2018 09:14
[2018-01-28 12:00] VITALS: BP 97/58
[2018-01-28] MEDS ORDERED: TETANUS,DIPTH,PERTUSS P/F (BOOSTRIX) 0.5 ML VIAL IM ONE (15:31)
--- NOTE | 2018-02-01 11:01 | Progress Note-Standard ---
Standard Progress Note Progress Notes/Assess & Plan Date Seen by Provider: Feb 01, 2018 Time Seen by Provider: 10:55 Progress/Assessment & Plan Received call from Motor Room Controller, Rosy re: follow up phone call with patient . Pt expressed concerns with ongoing headache and symptoms she related to epidural. Advised patient to call anesthesia department to discuss further. Shortly after, had a phone exchange with patient. Reports postural headache, back pain/tenderness that began shortly after discharge. Discussed conservative treatment options as patient is now 5 days . Pt agrees, advised her to follow up with us in the next 48 hours if symptoms have not improved or subsided. Final Diagnosis possible post dural puncture headache MACARENA GODINEZ CRNA Feb 01, 2018 11:01
== END 2018-01-28 17:30 | disposition home or self-care (01) | DRG 775 ==
LOC: LDRP 18:59 → EDPENDDISTM 01-28 14:00
PROVIDERS: ADMIT Family Medicine; ATTEND Family Medicine
PROC: 10E0XZZ Delivery of Products of Conception, External Approach (ICD-10-PCS; principal; 2018-01-27)
DX: O99.013 Anemia complicating pregnancy, third trimester (principal); D50.9 Iron deficiency anemia, unspecified; O89.4 Spinal and epidural anesthesia-induced headache during the puerperium; Z3A.39 39 weeks gestation of pregnancy; Z37.0 Single live birth; Z23 Encounter for immunization
CPT/HCPCS: 36415; 85025; 86850; 86900; 86901; 90715

== ENCOUNTER → 2020-03-22 | Outpatient (CLI) | payer MEDICAID ==
[~2020-03-22] MED LIST changes: +IBUP-844 PO
--- NOTE | 2020-03-22 10:52 | Diagnostic Imaging Report ---
INDICATION: patient, size and dates. TECHNIQUE: Multiple real-time grayscale images were obtained over the gravid uterus. COMPARISON: None during this . FINDINGS: A single live intrauterine fetus is seen measuring 16 weeks 2 days in size by composite measurements. Sonographic EDC is 09/04/2020. Fetus is in cephalic presentation. Placenta is posterior and on the right with no evidence of previa. Amniotic fluid is qualitatively normal. This is too early for full survey but kidneys and stomach appear normal. Recommend follow-up in three to four weeks. Cervical length was 3.5 cm. There is no adnexal mass or free fluid. Biometrical measurements are as follows: Biparietal 3.31 cm, age 16 weeks 2 days. Head circumference 12.32 cm, age 16 weeks 2 days. Abdominal circumference 10.32 cm, age 16 weeks 3 days. Femur length 1.89 cm, age 15 weeks 5 days. Sonographic estimate age: 16 weeks 2 days. Sonographic estimated date of delivery: 09/04/2020. Estimated Weight: 141 gm (+/- 21 gm). LMP percentile: 32%. heart rate: 142 beats per minute. number: 1 of 1. IMPRESSION: Single live intrauterine fetus measuring 16 weeks 2 days in size. There is no detectable abnormality. It is too early for full survey, consider follow-up study in three to four weeks. Dictated by: Dictated on workstation # [id number]
== END ==
LOC: RAD 10:00
PROVIDERS: ATTEND Family Medicine
DX: Z34.92 Encounter for supervision of normal pregnancy, unspecified, second trimester (principal); Z3A.16 16 weeks gestation of pregnancy
CPT/HCPCS: 76805

== ENCOUNTER → 2020-06-11 | Outpatient (CLI) | payer MEDICAID ==
--- NOTE | 2020-06-11 14:48 | Diagnostic Imaging Report ---
INDICATION: survey. TECHNIQUE: Multiple real-time grayscale images were obtained over the gravid uterus. COMPARISON: 03/22/2020. FINDINGS: There is a single live fetus in a cephalic presentation. heart rate was recorded at 136 BPM. Placenta is posterior. The amniotic fluid index is 14.3 cm. No previa is identified. survey demonstrates kidneys, bladder, and stomach to be unremarkable. brain is unremarkable. There is a four-chamber heart. There is a three-vessel cord with normal insertion. spine is unremarkable. Biometrical measurements are as follows: Biparietal 7.47 cm, age 30 weeks 0 days. Head circumference 26.33 cm, age 28 weeks 5 days. Abdominal circumference 22.85 cm, age 27 weeks 2 days. Femur length 4.81 cm, age 26 weeks 1 days. Sonographic estimate age: 28 weeks 1 days. Sonographic estimated date of delivery: 09/02/2020. Estimated Weight: 1032 gm (+/- 151 gm). LMP percentile: 15%. heart rate: 136 beats per minute. number: 1 of 1. IMPRESSION: Single live IUP of 28 weeks gestational age demonstrating normal interval growth when compared with prior exam from 03/22/2020. No complicating features are detected. Dictated by: Dictated on workstation # [id number]
== END ==
LOC: RAD 13:45
PROVIDERS: ATTEND Family Medicine
DX: Z34.93 Encounter for supervision of normal pregnancy, unspecified, third trimester (principal); Z3A.28 28 weeks gestation of pregnancy
CPT/HCPCS: 76805

== ENCOUNTER 2020-08-28 04:39 | Inpatient (IN) | payer MEDICAID ==
[~2020-08-28] VITALS: Ht 165.1 cm; Wt 60.7 kg
[2020-08-28] VITALS (37 sets, daily range): BP systolic 104–144; BP diastolic 59–92
[2020-08-28] MEDS ORDERED: D5 LR IV SOLUTION 1,000 ML IV SCH (06:15)
[2020-08-28] MEDS ORDERED: MINERAL OIL CONCENTRATE 99.9% 15 ML UDC TOP PRN (06:15)
[2020-08-28] MEDS ORDERED: MEPIVACAINE (CARBOCAINE) 2% 50 ML VIAL INJ PRN (06:15)
[2020-08-28] MEDS ORDERED: OXYTOCIN PRE-MIX DRIP 500 ML IV ONE (06:35)
--- NOTE | 2020-08-28 06:46 | History & Physical-OB ---
OB - Chief Complaint & HPI Date/Time Date of Admission: Date of Admission: Aug 28, 2020 at 05:49 Date seen by a Provider: Aug 28, 2020 Time Seen by a Provider: 06:35 Chief Complaint/History OB-Reason for Admission/Chief: Induction of Labor Hx : 5 Hx Para: 4 Expected Date of Delivery: Sep 04, 2020 Gestational Age in Weeks: 39 Gestational Age in Days: 0 Admission Nurse Assessment Rev: Yes History of Labs GBS negative Allergies and Home Medications Allergies Coded Allergies: codeine (Unverified Allergy, Unknown, Pt has received hydrocodone in the past w/o issue, 01/27/18) Home Medications Ferrous Sulfate 325 Mg Tablet, 325 MG PO TIDWM, (Reported) Vit/Iron Fumarate/FA 1 Each Tablet, 1 EACH PO DAILY, (Reported) Patient Home Medication List Home Medication List Reviewed: Yes OB - History Hx of Present Care: Yes Obstetrical Complications: None Medical Complications: None Obstetrical History Hx Termination: No Hx Multiple Gestation: No Hx Stillbirth: No Hx Complication: No Hx Induced Hypertens: No Hx Maternal Gestational Diabet: No Delivery History Hx Dystocia: No Hx Large For Gestational Age I: No Hx Small for Gestational Age I: No Hx Section: No Hx Blood Disorders: No Adverse Rxn to Tranfusion: No Patient Past Medical History no chronic medical problems Immunizations Hepatitis A: Yes Hepatitis B: Yes Tetanus Booster (TDap): Unknown Date of Influenza Vaccine: May 11, 2016 OB - Admission Exam Physical Exam Vitals: Vital Signs 08/28/20 08/28/20 06:07 06:18 Temp 35.8 Pulse 78 Resp 18 B/P (MAP) 117/81 (93) Pulse Ox 100 O2 Delivery Room Air HEENT: Moist Membranes Heart: Rhythm Normal Lungs: Clear Cervical Dilatation: Fingertip Effacement: 50% Station: -3 (and posterior) Membranes: Intact Heart Rate: 140's Accelerations: Accelerations Present Decelerations: Variable Decelerations Short Term Variability: Present Otr [employer] Driver Variability: Average (6-25) Contractions on Admission: None Jennings Scoring Tool (Modified) Dilation (cm): 0/Closed (0) Effacement (%): 31-51% (1) Cervix Consistency: Medium(1) Cervix Position: Posterior (0) Add 1 point for: Each previous vaginal delivery (1) Jennings Score: 6 Labs Laboratory Tests Test 08/28/20 06:29 Range/Units OB - Assessment/Plan/Diagnosis Assessment Assessment: induction of labor Admission Dx 1. IUP at term 39 weeks. Admission Status: Inpatient Order (span 2 midnights) Reason for Inpatient Admission: L&D Plan Plan: Induction Induction Method: per Pitocin Protocol Other Plan -she desires epidural -will begin pitocin GERSON MUELLER MD Aug 28, 2020 06:46
[2020-08-28 06:48] LABS: BASOPHILS % (AUTO) 1 % (0-10); EOSINOPHILS # (AUTO) 0.2 10^3/uL (0.0-0.3); EOSINOPHILS % (AUTO) 3 % (0-10); HEMATOCRIT 30 % (35-52); HEMOGLOBIN 9.5 g/dL (11.5-16.0); LYMPHOCYTES # (AUTO) 2.1 10^3/uL (1.0-4.0); LYMPHOCYTES % (AUTO) 34 % (12-44); MEAN CORPUSCULAR HEMOGLOBIN 26 pg (25-34); MEAN CORPUSCULAR HGB CONC 31 g/dL (32-36); MEAN CORPUSCULAR VOLUME 83 fL (80-99); MEAN PLATELET VOLUME 12.7 fL (9.0-12.2); MONOCYTES # (AUTO) 0.9 10^3/uL (0.0-1.0); MONOCYTES % (AUTO) 14 % (0-12); NEUTROPHILS % (AUTO) 47 % (42-75); PLATELET COUNT 149 10^3/uL (130-400); WHITE BLOOD COUNT 6.3 10^3/uL (4.3-11.0)
[2020-08-28 06:49] LABS: BILIRUBIN,URINE NEGATIVE (NEGATIVE); CLARITY,URINE CLEAR; COLOR,URINE YELLOW; GLUCOSE, URINE (UA) NEGATIVE (NEGATIVE); KETONES,URINE NEGATIVE (NEGATIVE); LEUKOCYTE ESTERASE ,URINE NEGATIVE (NEGATIVE); NITRITE,URINE NEGATIVE (NEGATIVE); PH,URINE 6.5 (5-9); PROTEIN,URINE NEGATIVE (NEGATIVE)
[2020-08-28] MEDS ORDERED: OXYTOCIN PRE-MIX DRIP 500 ML IV SCH ×2 (07:00→13:45)
[2020-08-28 07:01] LABS: BACTERIA,URINE TRACE /HPF; WBC,URINE RARE /HPF
[2020-08-28] MEDS ORDERED: fentaNYL INJECTION 100 MCG/2 ML AMP ONE (09:44)
[2020-08-28] MEDS ORDERED: BUPIVACAINE 0.25% 30 ML (SENSORCAINE) VIAL ONE (09:44)
[2020-08-28] MEDS ORDERED: LACTATED RINGERS 1,000 ML IV SCH (10:30)
[2020-08-28] MEDS ORDERED: ONDANSETRON 4 MG/2 ML (SDV) Z0FRAN IV PRN (10:30)
[2020-08-28] MEDS ORDERED: EPIDURAL (fentaNYL 2 MCG/ML BUPIVA 0.125%)100 ML BAG EPI PRN (10:30)
[2020-08-28] MEDS ORDERED: METOCLOPRAMIDE INJ 10 MG/2 ML (REGLAN) IV PRN (10:30)
[2020-08-28] MEDS ORDERED: diphenhydrAMINE 50 MG/ML INJ (BENADRYL) IV PRN (10:30)
[2020-08-28] MEDS ORDERED: NALOXONE 0.4 MG/ML 1 ML (NARCAN) VIAL IV PRN ×2 (10:30)
--- NOTE | 2020-08-28 13:40 | OB Labor & Delivery Record ---
L&D History Date of Service Date of Service: Aug 28, 2020 History Expected Date of Delivery: Sep 04, 2020 Gestational Age in Weeks: 39 Hx : 5 Hx Para: 4 Complications Events: Routine care Operative Indications (Cesarea: N/A-Vaginal Delivery Intrapartal Events: None L&D Stage1 Stage One Onset of Labor - Date: Aug 28, 2020 Onset of Labor - Time: 10:30 Monitors and Tracing Monitor Mode: Internal Heart Rate: 145 Monitor Accelerations: Uniform Monitor Decelerations: None Station: 0 Butcher All Round Variability: Average (6-10) Presentation: Vertex Vital Signs VS - Last 72 Hours, by Label 08/28/20 08/28/20 08/28/20 08/28/20 06:07 06:18 07:23 07:30 Temp 35.8 35.8 36.0 Pulse 78 78 75 Resp 18 18 18 B/P (MAP) 117/81 (93) 105/73 (84) Pulse Ox 100 100 O2 Delivery Room Air Room Air Room Air 08/28/20 08/28/20 08/28/20 08/28/20 07:45 08:00 08:15 08:30 Pulse 65 71 62 70 Resp 18 18 18 18 B/P (MAP) 122/85 (97) 113/66 (82) 118/77 (91) 115/77 (90) O2 Delivery Room Air Room Air Room Air Room Air 08/28/20 08/28/20 08/28/20 08/28/20 08:45 09:00 09:15 09:30 Pulse 65 67 74 71 Resp 18 18 18 18 B/P (MAP) 125/92 (103) 119/78 (92) 120/88 (99) 126/76 (93) O2 Delivery Room Air Room Air Room Air Room Air 08/28/20 08/28/20 08/28/20 08/28/20 09:45 09:50 09:55 10:00 Pulse 68 84 90 75 Resp 18 18 18 18 B/P (MAP) 123/79 (94) 122/67 (85) 144/84 (104) 115/73 (87) Pulse Ox 100 100 100 O2 Delivery Room Air Room Air Room Air Room Air 08/28/20 08/28/20 08/28/20 08/28/20 10:05 10:10 10:20 10:30 Pulse 90 96 96 75 Resp 18 18 18 18 B/P (MAP) 115/75 (88) 114/84 (94) 104/66 (79) 110/69 (83) Pulse Ox 100 98 99 100 O2 Delivery Room Air Room Air Room Air Room Air 08/28/20 08/28/20 08/28/20 08/28/20 10:45 11:00 11:15 11:30 Pulse 85 83 77 77 Resp 18 18 18 18 B/P (MAP) 107/73 (84) 111/77 (88) 110/74 (86) 106/68 (81) Pulse Ox 98 99 100 98 O2 Delivery Room Air Room Air Room Air Room Air 08/28/20 08/28/20 08/28/20 11:45 12:00 12:05 Temp 37.1 Pulse 76 73 Resp 18 18 B/P (MAP) 129/59 (82) 119/68 (85) Pulse Ox 99 100 O2 Delivery Room Air Room Air Signs of Distress by FHT Signs of Distress no Rupture of Membranes Spontaneous Ruture of Membrane: No Amniotic Membrane Rupture Time: 1029 Amniotic Membrane Fluid Desc.: Clear Vaginal Bleeding Description: None Induction/Anesthesia Epidural Cath Placement - Time: 1000 L&D Stage2 Stage Two Stage II Date: Aug 28, 2020 Stage II Time: 13:26 Monitors and Tracing Monitor Mode: Internal Heart Rate: 145 Monitor Accelerations: Uniform Monitor Decelerations: Variable Butcher All Round Variability: Average (6-10) Position: Left Occiput Anterior Presentation: Vertex Signs of Distress by FHT Signs of Distress no Cord Descript/Complications Cord Vessel Description: 3 Vessels Delivery Type Delivery Method: Spontaneous Vaginal Anterior Shoulder: Left Episiotomy/Perineal Laceration Laceraction(s)/Extensions: No Condition of Infant Delivery 1 minute Comment: 8 5 minute Comment: 9 Condition of Infant Condition of Infant: Living Exam: No Observed Abnormalities Resuscitation Resuscitation: N/A - Spontaneous Resp L&D Stage3 Stage Three Stage III Date: Aug 28, 2020 Stage III Time: 13:31 Pictocin Pitocin Administration mu/min: 10 Pitocin ml/hr: 10 Pitocin Administration Comment: pitocin increased Placenta Delivery Placenta Delivery: Spontaneous Delivery Summary Summary Estimated blood loss (mL): 100 Condition of Delivery Examined: Cervix Examined Post Hemorrhage: No Intervention Required none GERSON MUELLER MD Aug 28, 2020 13:40
[2020-08-28] MEDS ORDERED: TETANUS,DIPTH,PERTUSS P/F (BOOSTRIX) 0.5 ML VIAL IM ONE (13:45)
[2020-08-28] MEDS ORDERED: MEASLES,MUMPS,RUBELLA 1 EA INJ SQ ONE (13:45)
[2020-08-28] MEDS ORDERED: BENZOCAINE/MENTHOL (DERMOPLAST) 60 ML CAN TP PRN (13:45)
[2020-08-28] MEDS ORDERED: WITCH HAZEL(TUCKS) 40 EA JAR TOP PRN (13:45)
[2020-08-28] MEDS ORDERED: CATHETER FLUSH 10 ML SYR IV SCH (14:00)
[2020-08-28] MEDS: ACETAMINOPHEN 500 MG TAB (TYLENOL) PO SCH (15:47)
[2020-08-28] MEDS: IBUPROFEN 600 MG (MOTRIN) TAB PO SCH ×2 (15:47→22:17)
[2020-08-28] MEDS: FERROUS SULF 325 MG (IRON) TAB PO SCH (19:34)
[2020-08-28] MEDS: DOCUSATE SODIUM 100 MG (COLACE) CAP PO SCH (19:34)
[2020-08-28] MEDS: CATHETER FLUSH 10 ML SYR IV SCH (22:39)
[2020-08-29 00:10] VITALS: BP 99/64
[2020-08-29] MEDS: ACETAMINOPHEN 500 MG TAB (TYLENOL) PO SCH ×2 (00:14→06:00)
[2020-08-29] MEDS: IBUPROFEN 600 MG (MOTRIN) TAB PO SCH ×2 (03:47→09:07)
[2020-08-29 03:54] VITALS: BP 126/76
[2020-08-29 05:48] LABS: BASOPHILS % (AUTO) 1 % (0-10); EOSINOPHILS # (AUTO) 0.3 10^3/uL (0.0-0.3); EOSINOPHILS % (AUTO) 3 % (0-10); HEMATOCRIT 27 % (35-52); HEMOGLOBIN 8.6 g/dL (11.5-16.0); LYMPHOCYTES # (AUTO) 2.4 10^3/uL (1.0-4.0); LYMPHOCYTES % (AUTO) 30 % (12-44); MEAN CORPUSCULAR HEMOGLOBIN 26 pg (25-34); MEAN CORPUSCULAR HGB CONC 31 g/dL (32-36); MEAN CORPUSCULAR VOLUME 82 fL (80-99); MEAN PLATELET VOLUME 12.8 fL (9.0-12.2); MONOCYTES # (AUTO) 1.1 10^3/uL (0.0-1.0); MONOCYTES % (AUTO) 13 % (0-12); NEUTROPHILS # (AUTO) 4.3 10^3/uL (1.8-7.8); NEUTROPHILS % (AUTO) 53 % (42-75); PLATELET COUNT 110 10^3/uL (130-400); WHITE BLOOD COUNT 8.2 10^3/uL (4.3-11.0)
[2020-08-29] MEDS ORDERED: PRENATAL VITAMIN 1 EA TAB PO SCH (07:00)
--- NOTE | 2020-08-29 07:12 | Discharge Summary ---
Diagnosis/Chief Complaint Date of Admission Aug 28, 2020 at 05:49 Date of Discharge Discharge Date: Aug 29, 2020 Discharge Time: 15:00 Admission Diagnosis Admission Diagnosis 1. Intrauterine at term 39 weeks gestation Discharge Diagnosis 1. Intrauterine at term 39 weeks gestation Reason Hospital Visit 25-year-old 5 now term 5 living 5 who initially presents to labor and delivery in the morning of August 28, 2020 for induction of labor. Patient's care was essentially unremarkable. Her EDC based upon early ultrasound was noted to be September 04, 2020. On admission she did not have contractions and there was no reports of any vaginal bleeding or ruptured membranes. Discharge Summary-OBS Procedures 1 Epidural per anesthesia 2. Spontaneous vaginal delivery Discharge Physical Examination Allergies: Coded Allergies: codeine (Unverified Allergy, Unknown, Pt has received hydrocodone in the past w/o issue, 01/27/18) Vitals & I&Os Vital Signs Date Time Temp Pulse Resp B/P (MAP) Pulse Ox O2 Delivery O2 Flow Rate FiO2 08/29/20 03:54 36.4 62 18 126/76 (93) Room Air 08/28/20 13:15 100 General Appearance: No Acute Distress Respiratory: Clear to Auscultation Cardiovascular: Regular Rate Abdominal: Normal Bowel Sounds, Soft (with uterus firm) Neuro: Normal Speech Hospital Course Was the Problem List Reviewed?: Yes following admission she underwent labor. She requested epidural and this was achieved early in her labor course and tolerated well. She required low-dose Pitocin augmentation to achieve adequate labor pattern. Ultimately she went on to completion. She delivered over a intact perineum a term viable female. If that received Apgars of 8 at 1 minute and 9 at 5 minutes. Inspection of the perineum revealed no lacerations and there was no significant bleed. Following delivery she underwent routine care orders. There was no complications during the remainder of hospital stay. She was noted to ambulate without any symptoms of dizziness. Her hemoglobin the day after delivery noted to be 8.6 compared to her admission of 9.5. She was eager for dismissal during the afternoon of August 29, 2020. She will continue with her vitamin and iron for the next one month. Follow up in 6 weeks. Pending Labs Laboratory Tests 08/29/20 05:20: White Blood Count 8.2, Red Blood Count 3.34, Hemoglobin 8.6, Hematocrit 27, Mean Corpuscular Volume 82, Mean Corpuscular Hemoglobin 26, Mean Corpuscular Hemoglobin Concent 31, Red Cell Distribution Width 14.6, Platelet Count 110, Mean Platelet Volume 12.8, Immature Granulocyte % (Auto) 1, Neutrophils (%) (Auto) 53, Lymphocytes (%) (Auto) 30, Monocytes (%) (Auto) 13, Eosinophils (%) (Auto) 3, Basophils (%) (Auto) 1, Neutrophils # (Auto) 4.3, Lymphocytes # (Auto) 2.4, Monocytes # (Auto) 1.1, Eosinophils # (Auto) 0.3, Basophils # (Auto) 0.0, Immature Granulocyte # (Auto) 0.1 Discharge Instructions to patient/family Please see electronic discharge instructions given to patient. Discharge Medications Reviewed and agree with Discharge Medication list on patient's Discharge Instruction sheet GERSON MUELLER MD Aug 29, 2020 07:12
--- NOTE | 2020-08-29 07:14 | Discharge Inst-Women's Service ---
Discharge Inst-Women's Serv Depart Medication/Instructions New, Converted or Re-Newed RX: Other Instructions Be sure to take iron replacement for the next one month. May have ibuprofen 2 or 3 tablets every 6 hours if needed for cramping. Problems Reviewed?: Yes Consults/Follow Up Additional Follow Up: Yes (Dr. Mueller n 6 weeks) Activity Driving Instructions: No Driving for 1 Week Nothing Inside Vagina: No Collbran (for 6 weeks) Diet Discharge Diet: Regular Diet Return to The Hospital For: as below Symptoms to Report to : Bleeding Excessive, Fever Over 101 Degrees F, Vaginal Discharge Foul For Any Problems or Questions: Contact Your Physician GERSON MUELLER MD Aug 29, 2020 07:13
[2020-08-29] MEDS ORDERED: NON-FORMULARY MEDICATION 1 EA EA (Prenatal Vit/Iron Fumarate/FA (Prenatal Tablet) 1 EACH) PO SCH (09:00)
[2020-08-29] MEDS: FERROUS SULF 325 MG (IRON) TAB PO SCH (09:07)
[2020-08-29] MEDS: DOCUSATE SODIUM 100 MG (COLACE) CAP PO SCH (09:07)
[2020-08-29 09:20] VITALS: BP 103/72
--- NOTE | 2020-08-29 14:27 | Anesthesia-Regional Post-Op ---
Regional Patient Condition Mental Status: Alert, Oriented x3 Circulation: Same as Pre-Op Headache: Absent Sensation: Full Recovery Motor Block: Absent Post Op Complications Complications None Follow Up Care/Instructions Patient Instructions None needed. Anesthesia/Patient Condition Patient is doing well, no complaints, stable vital signs, no apparent adverse anesthesia problems. CORNELIUS RANDOLPH DO Aug 29, 2020 14:26
== END 2020-08-29 16:15 | disposition home or self-care (01) | DRG 807 ==
LOC: LDRP 05:49
PROVIDERS: ADMIT Family Medicine; ATTEND Family Medicine
PROC: 10E0XZZ Delivery of Products of Conception, External Approach (ICD-10-PCS; principal; 2020-08-28)
PROC: 3E033VJ Introduction of Other Hormone into Peripheral Vein, Percutaneous Approach (ICD-10-PCS; 2020-08-28)
DX: O80 Encounter for full-term uncomplicated delivery (principal); Z37.0 Single live birth; Z3A.39 39 weeks gestation of pregnancy
CPT/HCPCS: 36415; 81000; 85025; 86850; 86900; 86901